=== PATIENT | female | born 1945 | race Caucasian/White ===

== ENCOUNTER 2018-02-20 13:23 | Outpatient (CLI) | payer OTHER | END 2018-02-20 13:35 | disposition home or self-care (01) | LOC: NUCLEAR 13:23 | DX: M81.0 Age-related osteoporosis without current pathological fracture (principal) ==

== ENCOUNTER 2018-02-20 14:23 | Outpatient (CLI) | payer OTHER | END 2018-02-20 14:34 | disposition home or self-care (01) | LOC: MAMO-SONO 14:23 | DX: Z12.31 Encounter for screening mammogram for malignant neoplasm of breast (principal); Z87.898 Personal history of other specified conditions; N60.01 Solitary cyst of right breast; N60.02 Solitary cyst of left breast ==

== ENCOUNTER → 2018-08-21 | Outpatient (CLI) | payer OTHER | END | disposition home or self-care (01) | LOC: SONOGRAMA 11:57 | DX: N60.01 Solitary cyst of right breast (principal) ==

== ENCOUNTER 2019-02-22 09:30 | Outpatient (CLI) | payer OTHER | END 2019-02-23 06:38 | disposition home or self-care (01) | LOC: MAMO-SONO 09:30 | DX: Z12.31 Encounter for screening mammogram for malignant neoplasm of breast (principal); Z87.898 Personal history of other specified conditions; N60.11 Diffuse cystic mastopathy of right breast; N60.12 Diffuse cystic mastopathy of left breast ==

== ENCOUNTER 2019-02-23 07:20 | Outpatient (CLI) | payer OTHER | END 2019-02-23 07:29 | disposition home or self-care (01) | LOC: SONOGRAMA 07:20 | DX: N85.2 Hypertrophy of uterus (principal) ==

== ENCOUNTER 2020-04-28 13:04 | Outpatient (CLI) | payer OTHER | END 2020-04-28 18:00 | disposition home or self-care (01) | LOC: PPH VACUNA 13:04 | PROVIDERS: ATTEND Emergency Medicine Pediatric Emergency Medicine | DX: Z23 Encounter for immunization (principal) ==

== ENCOUNTER 2020-05-14 15:04 | Outpatient (CLI) | payer OTHER | END 2020-05-14 15:16 | disposition home or self-care (01) | LOC: SONOGRAMA 15:04 → MAMO-SONO 15:30 | PROVIDERS: ATTEND Obstetrics & Gynecology | DX: Q51.818 Other congenital malformations of uterus (principal); N73.8 Other specified female pelvic inflammatory diseases; R10.84 Generalized abdominal pain ==

== ENCOUNTER 2020-05-19 08:00 | Outpatient (CLI) | payer OTHER | END 2020-05-19 15:00 | disposition home or self-care (01) | LOC: PPH VACUNA 08:00 | PROVIDERS: ATTEND Emergency Medicine Pediatric Emergency Medicine | DX: Z23 Encounter for immunization (principal) ==

== ENCOUNTER 2021-01-14 09:30 | Outpatient (CLI) | payer OTHER | END 2021-01-14 10:00 | disposition home or self-care (01) | LOC: PPH VACUNA 09:30 | PROVIDERS: ATTEND Emergency Medicine Pediatric Emergency Medicine | DX: Z23 Encounter for immunization (principal) ==

== ENCOUNTER 2021-09-22 09:24 | Outpatient (CLI) | payer OTHER | END 2021-09-22 09:34 | disposition home or self-care (01) | LOC: MAMO-SONO 09:24 | PROVIDERS: ATTEND Obstetrics & Gynecology | DX: Z12.31 Encounter for screening mammogram for malignant neoplasm of breast (principal); N60.11 Diffuse cystic mastopathy of right breast; N60.12 Diffuse cystic mastopathy of left breast ==

== ENCOUNTER 2022-09-21 10:57 | Outpatient (CLI) | payer OTHER | END 2022-09-21 11:04 | disposition home or self-care (01) | LOC: NUCLEAR 10:57 | PROVIDERS: ATTEND Obstetrics & Gynecology | DX: M81.0 Age-related osteoporosis without current pathological fracture (principal) ==

== ENCOUNTER 2024-09-06 08:21 | Outpatient (CLI) | payer OTHER | END 2024-09-06 08:31 | disposition home or self-care (01) | LOC: MAMO-SONO 08:21 | PROVIDERS: ATTEND Internal Medicine | DX: N64.9 Disorder of breast, unspecified (principal); Z12.31 Encounter for screening mammogram for malignant neoplasm of breast ==

== ENCOUNTER 2025-03-13 10:55 | Outpatient (CLI) | payer OTHER | END 2025-03-13 10:56 | disposition home or self-care (01) | LOC: NUCLEAR 10:55 | PROVIDERS: ATTEND Internal Medicine | DX: Z13.820 Encounter for screening for osteoporosis (principal); M81.0 Age-related osteoporosis without current pathological fracture ==